=== PATIENT | male | born 1955 | race Caucasian/White ===

== ENCOUNTER → 2020-11-04 | Outpatient (CLI) | payer OTHER ==
[~2020-11-04] MED LIST: CHOLESTEROL; IBUPROFEN 800800 M1 PO; NORCO 5-325 TA1 EACH PO; PROSTATE MED; ZOFRAN ODT4 MG PO
--- NOTE | 2020-11-09 07:50 | PF ---
[address] [address] PULMONARY FUNCTION REPORT Name: BENJAMÍN FLORES Room: [facility]#: [id number] Admission: 11/04/20 Attend Phys: Paloma Good Discharge: Date of : 51 Report #: [id number] THIS REPORT FOR: cc: Paloma Good,Paloma LOPEZ ~ Orlando Cruz MD DATE OF SERVICE: 11/04/2020 The FEV1/FVC ratio is decreased to 39% with a forced vital capacity decreased to 72% and FEV1 decreased to 38%. The [id number] is also markedly decreased to 12%. Only a spirometry is performed. There is no reversibility performed. IMPRESSION: 1. Severe obstruction, reversibility was not performed. 2. There is a mild restrictive pattern on spirometry as well, this could be due to concurrent restriction or could be secondary to obstruction by itself. Full pulmonary function test to assess further can be considered. <ELECTRONICALLY SIGNED> By: Orlando Cruz MD 11/09/20 0750 [id number] Cruz MD /nt
== END ==
LOC: M.CT 10:05
PROVIDERS: ATTEND Nurse Practitioner Family
DX: Z13.6 Encounter for screening for cardiovascular disorders (principal); J98.8 Other specified respiratory disorders

== ENCOUNTER → 2020-11-04 | Outpatient (CLI) | payer MEDICARE | LOC: M.PUL 10:00 | PROVIDERS: ATTEND Nurse Practitioner Family | DX: J98.6 Disorders of diaphragm (principal); R06.02 Shortness of breath; Z98.890 Other specified postprocedural states; Z79.899 Other long term (current) drug therapy ==

== ENCOUNTER 2021-03-22 12:54 | Emergency (ER) | payer MEDICARE, OTHER ==
[~2021-03-22] VITALS: Ht 180.3 cm; Wt 111.1 kg
[2021-03-22] MEDS ORDERED: B-125000 MC1 SUBLING (13:07)
[2021-03-22] MEDS ORDERED: BREZTRI AEROS10.7 GM INH (13:07)
[2021-03-22] MEDS ORDERED: OMEGA-3 FISH1200 MG PO (13:08)
[2021-03-22] MEDS ORDERED: VIAGRA100 MG PO (13:08)
[2021-03-22] MEDS ORDERED: PROSCAR 5MG TABL5 M1 PO (13:08)
[2021-03-22] MEDS ORDERED: OMEPRAZOLE 20 M20 M1 PO (13:08)
[2021-03-22] MEDS ORDERED: ZETIA10 MG PO (13:08)
[2021-03-22] MEDS ORDERED: CIPRO500 M1 PO ×2 (13:09→14:37)
[2021-03-22] MEDS ORDERED: TRELEGY ELLIPT1 EACH INH (13:09)
[2021-03-22] MEDS ORDERED: TRAMADOL 50 MG50 MG PO (13:09)
[2021-03-22 13:29] LABS: WBC 9.3 thou/uL (4.0-11.0)
[2021-03-22 13:30] LABS: ABSOLUTE BASOPHILS 0.1 thou/uL (0.0-0.2); ABSOLUTE EOSINOPHILS 0.1 thou/uL (0.0-0.7); ABSOLUTE LYMPHOCYTES 1.4 thou/uL (0.8-5.3); ABSOLUTE MONOCYTES 0.8 thou/uL (0.0-1.2); ABSOLUTE NEUTROPHILS 6.8 thou/uL (1.6-8.1); BASOPHILS 0.6 %; EOSINOPHILS 1.6 %; HEMATOCRIT 47.6 % (42.0-52.0); HEMOGLOBIN 16.8 gm/dL (14.0-18.0); LYMPHOCYTES 15.5 %; MCH 34.5 pg (26.0-34.0); MCHC 35.3 g/dL (28.0-37.0); MCV 97.9 fL (80.0-100.0); MONOCYTES 8.6 %; NUCLEATED RBCS 0 /100WBC; PLATELET COUNT* 291 thou/uL (150-400); POLYS 73.7 %; RBC 4.86 mil/uL (4.50-6.00)
[2021-03-22 14:07] LABS: CALCIUM 8.5 mg/dL (8.5-10.1); CREATININE 1.1 mg/dL (0.6-1.3); POTASSIUM 3.9 mmol/L (3.5-5.1)
[2021-03-22 14:11] LABS: ALBUMIN 3.5 g/dL (3.4-5.0); TOTAL BILIRUBIN 0.9 mg/dL (<0.1-1.0); TOTAL PROTEIN 7.3 g/dL (6.4-8.2)
[2021-03-22] MEDS ORDERED: PERCOCET PO (14:37)
[2021-03-22 15:11] VITALS: BP 174/93
== END 2021-03-22 15:11 | disposition home or self-care (01) ==
LOC: M.ERS 12:54
PROVIDERS: Family Medicine
DX: N45.1 Epididymitis (principal); I10 Essential (primary) hypertension; F17.210 Nicotine dependence, cigarettes, uncomplicated